=== PATIENT | female | born 1975 | race Caucasian/White ===

== ENCOUNTER 2017-12-27 10:07 | Emergency (ER) | payer BC, SELFPAY ==
[2017-12-27 10:20] VITALS: BP 136/81; PULSE 70; RESP 16; TEMP 36.6; O2SAT 99
--- NOTE | 2017-12-27 10:30 | DI.REPORT_ITS ---
SYMPTOM/DIAGNOSIS: INJURY TO 4TH DIGIT RIGHT FOOT: No fracture or dislocation is seen. There are no significant degenerative changes. A bone island is noted in the distal phalanx of the great toe. IMPRESSION: Negative right foot.
--- NOTE | 2017-12-27 10:33 | ED.GENADUL_ITS ---
Disposition Clinical Impression: Sprain of toe, fourth, right Disposition: HOME Condition: Fair Instructions: Foot Sprain (ED) Additional Instructions: Encourage rest, ice, elevation. Tylenol and/or ibuprofen as needed for discomfort. Please continues postoperative shoe to help with discomfort. Please follow-up with primary care in 1-2 weeks if pain persists. If you develop new or worsening symptoms please seek care urgently once again. Referrals: Destiny Quinones MD [Primary Care Provider] - Medical Decision Making - Medical Decision Making Patient presents today with chief complaint of right foot pain. Struck her foot against a banister last night when she was falling down the stairs. Patient has ecchymosis and swelling to the dorsal aspect of the fourth digit. No palpable deformity or visible deformity. We will obtain radiographic images to evaluate. Patient is status post tubal ligation. Patient has not taken anything as of yet for her discomfort. Will give Tylenol and ibuprofen to help with pain. Discussed this plan with the patient who is in agreement. Discussed images with radiologist. In particular, we discussed small fragment off of the middle phananx of the 4th digit. She advised this does not appear acute. Discussed these findings with the patient. Encourage rest, ice, elevation. Tylenol and/or ibuprofen as needed for discomfort. Given the level of discomfort she is having with ambulation advised postoperative shoe which will help immobilize the foot. We discussed expected healing time. Advise follow- up with primary care in the next 1-2 weeks if pain persists. We discussed new/ worsening symptoms when to seek care urgently once again. All the questions and concerns were addressed and she is in agreement with this plan. History of Present Illness - General Chief complaint: Orthopedic Stated complaint: FOOT INJURY Time Seen by Provider: 12/27/17 10:30 Source: patient, RN notes reviewed Mode of arrival: ambulatory Limitations: no limitations - History of Present Illness Initial comments: Patient is a 42-year-old female presenting today with chief complaint of right foot pain. She reports that last night she stumbled at the top of the steps, and attempt to catch herself struck the fourth toe against a banister. Immediately noted pain and discoloration. As noted the affected toe to be ecchymotic and swollen today. States she has had a stress fracture historically proximal to this reports it is approximately 13 years ago. Denies any fevers or chills. Denies other injury the time the incident. Did not actually end up falling down the steps, reports that she was able to catch herself. Denies any altered sensation in the affected digit. - Related Data Unknown [No Known Home Meds] 12/27/17 Allergies Allergy/AdvReac Type Severity Reaction Status Date / Time No Known Allergies Allergy Unverified 12/27/17 10:23 Review of Systems Constitutional: no symptoms reported Respiratory: no symptoms reported Musculoskeletal: as per HPI Skin: as per HPI Neurological: as per HPI Past Medical History - Past Medical History Medical history: no medical history Surgical history: no surgical history - Social History Living Situation: lives with family General Exam - General Limitations: no limitations General appearance: alert, in no apparent distress - Eye Eye exam: Present: normal apperance - Respiratory Respiratory exam: Absent: respiratory distress - Extremities Exam Extremities exam: Present: full ROM, tenderness, normal capillary refill, joint swelling. Absent: normal inspection (Exam the patient's right lower extremity is significant for ecchymosis along the dorsal aspect of the patient's fourth toe extending proximally into the base of the metatarsal. No deformity palpable. Brisk capillary refill. Sensation is intact. No pain with palpation elsewhere about the foot. Good range of motion of the ankle. No ecchymosis or deformity noted on the plantar side of the foot.) - Neurological Exam Neurological exam: Present: alert, abnormal gait (Antalgic). Absent: motor sensory deficit - Psychiatric Psychiatric exam: Present: normal affect, normal mood - Skin Skin exam: Present: warm, dry, intact. Absent: normal color (Ecchymosis as above) Course Vital Signs - 24 hr 12/27/17 10:20 Temperature 36.6 C Pulse 70 Respiratory 16 Rate Blood Pressure 136/81 Pulse Oximetry 99
[2017-12-27 10:36] VITALS: TEMP 36.6
[2017-12-27] MEDS: Ibuprofen 600 MG TAB PO (10:36)
[2017-12-27] MEDS: Acetaminophen 500 MG TAB 1000 MG PO (10:36)
== END 2017-12-27 11:29 | disposition home or self-care (01) ==
PROVIDERS: Emergency Provider Student in an Organized Health Care Education/Training Program; PCP Family Medicine
DX: S93.504A Unspecified sprain of right lesser toe(s), initial encounter (principal); W22.8XXA Striking against or struck by other objects, initial encounter
CPT/HCPCS: 29515; 99284; 73630; 99282

== ENCOUNTER 2018-02-22 15:40 | Outpatient (REF) | payer BC, SELFPAY | END 2018-02-22 16:00 | LOC: NCHCN 15:40 | PROVIDERS: PCP Family Medicine; Visit Provider Family Medicine | DX: R30.0 Dysuria (principal) | CPT/HCPCS: 87086 ==

== ENCOUNTER 2018-07-06 14:32 | Outpatient (CLI) | payer OTHER, SELFPAY ==
--- NOTE | 2018-07-06 14:20 | DI.RAD_ITS ---
SYMPTOMS/DIAGNOSIS: RIGHT SHOULDER PAIN RIGHT SHOULDER: Three views. No bone or joint abnormality is identified. The soft tissues are unremarkable. IMPRESSION: Negative examination.
== END 2018-07-06 14:52 ==
PROVIDERS: PCP Family Medicine; Visit Provider Physician Assistant
DX: M25.511 Pain in right shoulder (principal)
CPT/HCPCS: 73030

== ENCOUNTER 2018-08-11 00:38 | Outpatient (CLI) | payer OTHER, SELFPAY ==
--- NOTE | 2018-08-11 08:57 | DI.MRI_ITS ---
SYMPTOM/DIAGNOSIS: RT SHOULDER PAIN, TENDINITIS,H/O FALL RIGHT SHOULDER MRI: The study was conducted according to the usual protocol. Axial T 2 fat sat and axial proton density, coronal T 2 fat sat and coronal proton density and sagittal T 2 fat sat and sagittal T 1 pulse sequences were performed. A small bony cyst is noted at the insertion of the supraspinatus tendon on the humerus. The bony signal is otherwise unremarkable. There is no evidence of a tear involving the supraspinatus, infraspinatus, subscapularis or biceps tendons. There is some increased signal and thickening of the subscapularis tendon just proximal to its humeral insertion which could be on the basis of tendinitis. There is no evidence of a labral tear. There is no joint effusion. SUMMARY: Question subscapularis tendinitis. The study is otherwise unremarkable.
== END 2018-08-11 00:58 ==
PROVIDERS: PCP Family Medicine; Visit Provider Student in an Organized Health Care Education/Training Program
DX: M75.81 Other shoulder lesions, right shoulder (principal)
CPT/HCPCS: 73221

== ENCOUNTER 2018-08-18 00:41 | Outpatient (CLI) | payer OTHER, SELFPAY ==
--- NOTE | 2018-08-18 10:20 | DI.RAD_ITS ---
SYMPTOMS/DIAGNOSIS: RT SHOULDER INJECTION, RT ROTATOR CUFF TENDINITIS, M75.81 C-ARM FLUOROSCOPY: Fluoroscopy Time: 18.3 sec C-arm fluoroscopy was utilized by Dr. Escobedo during right shoulder injection. Hardcopy shows needle in place with an intra-articular injection in the glenohumeral joint.
[2018-08-18] MEDS: Bupivacaine 0.5% Pres-Free 10 ML VIAL 5 ML IJ (12:06)
[2018-08-18] MEDS: Omnipaque 300 MG/ML 10 ML BTL IJ (12:06)
[2018-08-18] MEDS: methylPREDNISolone ACETATE 80 MG/ML VIAL IM (12:07)
--- NOTE | 2018-08-18 12:43 | W.PROCNOTE ---
Date of service: 08/18/18 Time of Service: 12:43 Procedure Note Date of procedure: 08/18/18 Procedure: Right Shoulder Injection Surgeon/Proceduralist/Physician: Rogerio Escobedo Procedure Indications: Jessi has had persistent pain of the RIGHT shoulder. Noninvasive measures have been tried. To serve as both diagnostic and therapeutic, an injection under fluoroscopy was recommended. I had discussed the risks of the procedure and the patient elected to proceed. Procedure Description: Jessi was greeted in the flouroscopy room. The correct side was identified and the consent was reviewed with the patient and signed. The patient was then placed in the supine position on the fluoroscopy table. The RIGHT shoulder was then prepped with Chloraprep. The anterior injection starting point was identiifed by bony landmarks and fluoroscopy. The skin and soft tissue in the tract of the injection was anesthetized with 1% Lidocaine. A spinal needle was then inserted deep into the shoulder joint at the level of the recess between the glenoid and superior humeral head. A small amount of Omnipaque solution was injected to confirm intraarticular placement. Once confirmed, the shoulder was injected with 4cc of 0.5% Bupivicaine and 80mg of Depo-Medrol. A bandaid was placed on the injection site. The patient tolerated the procedure well. She noted some minor improvements but still had a bulk of her preinjection pain present.
== END 2018-08-18 01:01 ==
PROVIDERS: PCP Family Medicine; Visit Provider Student in an Organized Health Care Education/Training Program
DX: M25.511 Pain in right shoulder (principal); M75.81 Other shoulder lesions, right shoulder
CPT/HCPCS: 20610; 77002; J1040

== ENCOUNTER 2019-10-08 04:49 | Emergency (ER) | payer BC, SELFPAY ==
--- NOTE | 2019-10-08 04:45 | DI.CT_ITS ---
EXAM: CT ABDOMEN PELVIS W CLINICAL HISTORY: right mid to lower abdominal pain TECHNIQUE: COMPARISON: No exams were available for comparison FINDINGS: CT examination of the pelvis was performed bolus infusion of 94 cc of Omnipaque 350. Images obtained through the lung bases are unremarkable. There are couple of tiny focal areas of decreased attenuat ion liver too small to characterize. Spleen is unremarkable in appearance. Pancreas appears normal. No biliary dilatation. Gallbladder wall thickening noted, nonspecific, inflammatory process not ex cluded, right upper quadrant ultrasound suggested for further evaluation. Abdominal aorta is of diameter and no major vascular abnormality is seen. No significant abdominal w all seen. No significant abdominal or pelvic adenopathy. Appendix is normal. No evidence of divert iculitis or bowel obstruction. Spread Cutter structures appear intact. Adrenals appear normal bilaterally. Left kidney is normal. No left-sided urinary tract calcificatio n or obstruction. There is an obstructing calculus measuring 3-4 millimeters in diameter in the proximal right ureter w ith moderate right hydronephrosis. No additional calcification seen in the right ureter. The urinar y bladder is nearly empty. There is a sclerotic focus the sacrum on the right measuring up to about 15 millimeters in diameter, additionally a sclerotic focus is notedleft pubic bone. These are likely to represent bone islands o r other benign process but metastatic disease is not excluded, correlation with bone scan may be cons idered. IMPRESSION: Obstructing 3-4 millimeter in diameter proximal right ureteral stone. Question gallbladder wall thickening, right upper quadrant ultrasound recommended. Indeterminate sclerotic foci in the pelvis, bone scan suggested to rule out metastatic disease if cli nically appropriate.
[2019-10-08 04:52] VITALS: BP 144/79; PULSE 73; RESP 16; TEMP 36.6; O2SAT 100
--- NOTE | 2019-10-08 04:56 | ED.GENADUL_ITS ---
Discharge Plan Disposition Patient Disposition: HOME Condition: Stable Discharge Details Chief Complaint: Abd Prob Clinical Impression: Abdominal pain, Calculus of right ureter Primary Care Provider: Destiny Quinones V ED Provider: Colin Saleem Home Meds and New Rx's Prescriptions: New ondansetron 4 mg tablet,disintegrating 4 mg PO Q8H PRN (Reason: nausea and vomiting) Qty: 30 RF: 0 tamsulosin [Flomax] 0.4 mg capsule 0.4 mg PO DAILY Qty: 14 RF: 0 oxycodone 5 mg tablet 5 mg PO Q6H PRN (Reason: pain) Qty: 12 RF: 0 Discharge Instructions Instructions: Kidney Stones (ED) Additional Instructions: Your cat scan showed you have a kidney stone. You also have a thick gallbladder wall and had a lesion in the sacrum that your primary careprovider should be made aware of as you may need additional outpatient management take 1000mg tylenol and 600mg ibuprofen every 6 hours for pain as needed if you need additional pain relief take 1 oxycodone. Do not drink alcohol or operate heavy machinery if you take this medicine if you have uncontrolled pain, persistent vomit or fevers return to the emergency department you should be contacted with an appointment with urology Referrals: West Muñiz MD [ [facility] STAFF PHYSICIAN] - Medical Decision Making 44 yo female who denies chronic medical problems doesn't smoke or use drugs, drinks occasionally, comes in with 1-2 days of right mid to lower abdomen pain and initially had n/v now with just intermittent nausea. Denies fevers, chest pain, chest pressure, dyspnea, changes in urinary or bowel patterns She arrives HD stable with tenderness in mid to right middle abdomen without guarding or rebound, no rashes and no distention. Could be colitis vs appendicitis vs kidney stone vs pancreatitis among other pathology, will obtain labs and imaging to further evaluate labs unremarkable, ct confirms kidney stone. Also has gallbladder all thickening and prominent common bile duct. she has no upper abdominal tenderness and negative ayoub's sign, no elevation in lfts and so doubt this as the cause of her symptoms. Also noted indeterminate sclerotic foci in sacrum. I informed her of the gallbladder and sacral findings and to f/u with pcp. Pain is controlled and she is tolerating PO. will d/c and have her f/u with urology with return precautions Differential Diagnosis Differential Diagnosis: kidney stone, pancreatitis, appendicitis Imaging Data Radiologic Study: Attestation: I personally reviewed and interpreted this imaging study as follows: Imaging: CT Scan Radiologist's impression: IMPRESSION: [id number] right hydroureteronephrosis secondary to a proximal/mid right ureteral calculus measuring 4 x 3 mm Question faint noncalcified gallstones versus sludge and mild gallbladder wall thickening. Prominent common bile duct. Further evaluation with right upper quadrant ultrasound as clinically indicated Indeterminate sclerotic foci in the sacrum. Comparison with prior images would be helpful. Osseous metastatic disease cannot be completely excluded Lab Data Lab results reviewed: Yes I reviewed the patient's lab results. HPI General Mode of arrival: ambulatory . Date/Time Provider Initiated Documentation: 10/08/19 04:50 . Limitations to Documentation: no limitations . Information obtained by: patient . History of Present Illness 44 year old F presents to the emergency department with the chief complaint of abdominal pain, described as moderate, Patient reports no radiation. Patient started experiencing this day(s) (2) and it has been constant. No relieving factors improve symptom(s), No exacerbating factors reported . Patient notes nausea/vomiting. Patient did receive the following treatments prior to arrival, none Related Data Home Medications Medication Instructions Recorded Confirmed ondansetron 4 mg PO Q8H PRN #30 tab 10/08/19 oxycodone 5 mg PO Q6H PRN #12 tab 10/08/19 tamsulosin [Flomax] 0.4 mg PO DAILY #14 cap 10/08/19 Previous Rx's Medication Instructions Recorded ondansetron 4 mg PO Q8H PRN #30 tab 10/08/19 oxycodone 5 mg PO Q6H PRN #12 tab 10/08/19 tamsulosin [Flomax] 0.4 mg PO DAILY #14 cap 10/08/19 Allergies Allergy/AdvReac Type Severity Reaction Status Date / Time No Known Allergies Allergy Unverified 10/08/19 04:57 General Stated Complaint: Abd Prob CORETTA: 3 Review of Systems All systems reviewed & are unremarkable except as noted in HPI and below Constitutional Constitutional: Denies chills, Denies fever(s) and Denies weakness Cardiovascular Cardiovascular: Denies chest pain and Denies dyspnea Respiratory Respiratory: Denies cough and Denies dyspnea Gastrointestinal Gastrointestinal: Denies vomiting Musculoskeletal Musculoskeletal: Denies joint swelling Neurologic Neurologic: Denies weakness Psychiatric Psychiatric: Denies depression [facility] Medical History (Updated 10/08/19 @ 06:30 by Colin Saleem MD) Abnormal Pap smear of cervix 2016 ASCUS + HPV. LEEP BELA 1 2016/2017 Nl Pap/Neg HPV. Surgical History (Updated 02/23/18 @ 14:33 by [employer] [place]) section x3. No complications. Ligation of fallopian tube Social History Smoking/Tobacco Use Status: Never Drug use: Never Substance use type: does not use Do you feel safe at home: Yes Do you feel safe in your relationship?: Yes Exam Const General: no acute distress Orientation: alert HENMT Head: normal to inspection Ears: external ears normal General nose exam: external nose normal Mouth: moist mucous membranes Eyes General: appearance normal, both eyes and all related structures Neck Neck: normal visual inspection Resp Effort & Inspection: normal respiratory effort and able to speak in complete sentences Cardio Rate: regular rate GI Palpation: soft and tender Skin General skin exam: no rashes or lesions noted Neuro General: patient alert and patient oriented x3 Extrem General: normal to inspection Psych Mental Status: mental status grossly normal Course Vital Signs Vital signs: Vital Signs Temperature 36.6 C 10/08/19 04:52 Pulse 73 10/08/19 04:52 Respiratory Rate 16 10/08/19 04:52 Blood Pressure 144/79 H 10/08/19 04:52 Pulse Oximetry 100 10/08/19 04:52 Temperature 36.6 C 10/08/19 04:52 Temperature Source Oral 10/08/19 04:52 Pulse 73 10/08/19 04:52 Respiratory Rate 16 10/08/19 04:52 Respiratory Effort 10/08/19 04:55 Blood Pressure 144/79 H 10/08/19 04:52 Blood Pressure Position Sitting 10/08/19 04:52 Pulse Oximetry 100 10/08/19 04:52 Oxygen Delivery Method Room Air 10/08/19 04:52 Oxygen Flow Rate 0 10/08/19 04:52 Pain Level 8 10/08/19 04:52
[2019-10-08 05:08] LABS: Abs Immature Grans 0.01 k/cumm (0.0-0.09); Absolute Basophil Count 0.03 k/cumm (0.0-0.2); Absolute Eosinophil Count 0.07 k/cumm (0.0-0.7); Absolute Lymphocyte Count 1.75 k/cumm (1.2-3.4); Basophils % 0.4; HCT 40.9 % (36.0-46.0); HGB 13.8 g/dL (12.0-15.5); Immature Grans % 0.1 %; Lymphocytes % 24.4; Mean Corp. HGB Concentration 33.7 g/dL (32.0-36.0); Mean Corpuscular Hemoglobin 31.2 pg (27.0-33.0); Mean Corpuscular Volume 92.3 fL (80-95); Mean Platelet Volume 9.7 fL (8.0-11.0); Neutrophils % 67.1; Platelet Count 254 x1000/uL (130-400); RBC 4.43 m/cumm (4.00-5.20); RBC Distribution Width 12.9 % (11.7-14.6); White Blood Cell Count 7.16 k/cumm (4.4-10.8)
[2019-10-08 05:22] LABS: ALT 25 U/L (14-59); AST 21 U/L (15-37); Albumin 3.9 g/dL (3.4-5.0); Alkaline Phosphatase 47 U/L (46-116); Anion Gap 5.9 mmol/L (3-11); BUN 15 mg/dL (7-18); Bilirubin, Direct 0.15 mg/dL (0.00-0.20); Bilirubin, Total 0.5 mg/dL (0.2-1.0); CO2 29.1 mmol/L (21.0-32.0); CREATININE 0.98 mg/dL (0.55-1.02); Chloride 103 mmol/L (98-107); Glucose 132 mg/dL (74-106); Lipase 98 U/L (73-393); Magnesium 1.9 mg/dL (1.8-2.4); Potassium 3.7 mmol/L (3.5-5.1); Sodium 138 mmol/L (136-145)
[2019-10-08] MEDS: Omnipaque 350 MG/ML 100 ML BTL IJ (05:51)
[2019-10-08] MEDS: Normal Saline - Diluent 50 ML VIAL IV (05:52)
[2019-10-08 05:55] LABS: Bilirubin Negative (Negative); Blood Moderate (Negative); Clarity Clear (Clear); Glucose Negative (Negative); Ketones 40 mg/dL (Negative); Leukocyte Esterase Negative (Negative); Nitrite Negative (Negative); Urobilinogen 0.2 EU/dL (Up TO 0.2)
[2019-10-08] MEDS: HYDROmorphone 2 MG/ML VIAL 1 MG IVP (06:03)
[2019-10-08 06:04] LABS: Bacteria Negative HPF (Negative); C & S Indicated? No; Casts Negative LPF (Negative); Crystals Negative HPF (Negative); Epithelial Cells Rare HPF (Negative); Mucus Negative (Negative); Other Cells Negative (Negative); RBC 20-50 HPF (0-2)
--- NOTE | 2019-10-08 06:15 | DI.VRAD_ITS ---
PROCEDURE INFORMATION: Exam: CT Abdomen And Pelvis With Contrast Exam date and time: 10/08/2019 4:57 AM Age: 44 years old Clinical indication: Localized; Patient HX: Right mid to lower abdominal pain; Per PT: Started 24 hours ago TECHNIQUE: Imaging protocol: Computed tomography of the abdomen and pelvis with intravenous contrast. COMPARISON: No relevant prior studies available. FINDINGS: Liver: Faint hypodensity in the dome of the liver is too small to characterize Gallbladder and bile ducts: Question mild gallbladder wall thickening. Faint noncalcified gallstones versus sludge. The common bile duct is mildly prominent. No ductal dilation. Pancreas: Normal. No ductal dilation. Spleen: Normal. No splenomegaly. Adrenals: Normal. No mass. Kidneys and ureters: 3 mm proximal/mid right ureteral calculus with mild to moderate right hydroureteronephrosis right hydroureteronephrosis Stomach and bowel: Unremarkable. No obstruction. No mucosal thickening. Appendix: No evidence of appendicitis. Intraperitoneal space: Unremarkable. No free air. No significant fluid collection. Vasculature: Unremarkable. No abdominal aortic aneurysm. Lymph nodes: Unremarkable. No enlarged lymph nodes. Bladder: Unremarkable as visualized. Reproductive: Unremarkable as visualized. Bones/joints: Sclerotic foci in the sacrum noted . Degenerative changes at the lumbosacral junction and lower lumbar spine No acute fracture. Soft tissues: Unremarkable. IMPRESSION: [id number] right hydroureteronephrosis secondary to a proximal/mid right ureteral calculus measuring 4 x 3 mm Question faint noncalcified gallstones versus sludge and mild gallbladder wall thickening. Prominent common bile duct. Further evaluation with right upper quadrant ultrasound as clinically indicated Indeterminate sclerotic foci in the sacrum. Comparison with prior images would be helpful. Osseous metastatic disease cannot be completely excluded Dictated and Authenticated by: Yash Hartman MD. Ordering:MAUREEN Shaw MD
[2019-10-08] MEDS: Ondansetron 4 MG/2 ML VIAL (06:42)
[2019-10-08 06:57] VITALS: BP 118/74; PULSE 54; RESP 16; O2SAT 99
--- NOTE | 2019-10-09 06:28 | NUR.NOTE ---
referral faxed to urology for f/u care Nursing Note:
== END 2019-10-08 07:02 | disposition home or self-care (01) ==
PROVIDERS: Emergency Provider Emergency Medicine; PCP Family Medicine
DX: N13.2 Hydronephrosis with renal and ureteral calculous obstruction (principal); R93.2 Abnormal findings on diagnostic imaging of liver and biliary tract; R93.7 Abnormal findings on diagnostic imaging of other parts of musculoskeletal system; R11.2 Nausea with vomiting, unspecified
CPT/HCPCS: 36415; 80053; 83690; 96374; 96375; 99285; 74177; 81003; 81015; 82248; 83735; 85025; J2405; J3490

== ENCOUNTER 2019-10-17 16:31 | Outpatient (REF) | payer BC, SELFPAY | END 2019-10-17 16:51 | LOC: NCHCN 16:31 | PROVIDERS: PCP Family Medicine; Visit Provider Nurse Practitioner Family | DX: R30.0 Dysuria (principal) | CPT/HCPCS: 87086 ==

== ENCOUNTER 2019-10-30 00:46 | Outpatient (CLI) | payer BC, SELFPAY ==
--- NOTE | 2019-10-30 | DI.US_ITS ---
EXAM: US ABDOMEN CLINICAL HISTORY: F/U ABNL CT SHOWING GB WALL THICKENING, R93.5 TECHNIQUE: Ultrasound abdomen performed using standard protocol. COMPARISON: CT CT ABDOMEN PELVIS W from 10/08/2019 FINDINGS: ABDOMINAL AORTA AND IVC: Visualized portions normal caliber. PANCREAS: Normal where visualized. LIVER: Normal. Hepatopedal flow in the Portal Vein. GALLBLADDER: Multiple stones are seen in the gallbladder. The largest measures 1.9 cm. There also a ppears to be sludge within the gallbladder. The gallbladder wall is thickened at 5.2 mm. No pericho lecystic fluid identified. BILIARY SYSTEM: Common bile duct measures 3.5 mm. No intrahepatic biliary ductal dilation. HERNANDEZ'S SIGN: Negative. KIDNEYS: Kidneys are symmetric in size. No evidence of renal calculi. No evidence of hydronephrosis. No renal mass or cyst identified. SPLEEN: Not enlarged. ASCITES: None seen. IMPRESSION: Cholelithiasis, gallbladder wall thickening and sludge. Acute cholecystitis may be considered. Plea se correlate clinically. DATA REPOSITORY:
== END 2019-10-30 01:06 ==
PROVIDERS: PCP Family Medicine; Visit Provider Nurse Practitioner Family
DX: K80.20 Calculus of gallbladder without cholecystitis without obstruction (principal); K82.8 Other specified diseases of gallbladder
CPT/HCPCS: 76700

== ENCOUNTER 2019-11-01 01:28 | Outpatient (CLI) | payer BC, SELFPAY ==
--- NOTE | 2019-11-01 11:00 | DI.NM_ITS ---
EXAM: NM BONE SCAN WHOLE BODY GRP CLINICAL HISTORY: F/U ABNL XRAYS,R93.5, SCLEROTIC FOCI SACRUM AND PUBIC BONE ON CT. COMPARISON: CT CT ABDOMEN PELVIS W from 10/08/2019 EXAMINATION: Whole body bone scan was performed with intravenous infusion of 25.0 millicuries of sharad hnetium 99 labeled methylene diphosphonate. FINDINGS: Areas of sclerosis were noted, right sacral ala and left superior pubic ramus, on recent CT. These a reas do not appear to correspond to areas of increased uptake on bone scan. No significant increased uptake seen apart from mildly increased uptake at the L5-S1 level consistent with observed degenerat brayan sclerotic peridiscal changes seen at CT. IMPRESSION: Essentially negative bone scan. No evidence of bony metastatic disease.
== END 2019-11-01 01:48 ==
PROVIDERS: PCP Family Medicine; Visit Provider Nurse Practitioner Family
DX: M53.88 Other specified dorsopathies, sacral and sacrococcygeal region (principal)
CPT/HCPCS: 78306

== ENCOUNTER 2019-11-02 01:56 | Outpatient (CLI) | payer BC, SELFPAY ==
--- NOTE | 2019-11-02 14:00 | DI.US_ITS ---
EXAM: US RENAL CLINICAL HISTORY: monitoring hydro on right N13.30 HYDRONEPHROSIS TECHNIQUE: Ultrasound performed using standard protocol. COMPARISON: No exams were available for comparison FINDINGS: Renal ultrasound was performed according to the usual protocol. Kidneys are normal in size and shape . Cortico medullary definition appears intact. There is no evidence of hydronephrosis, nephrolithia sis, or renal mass. Urinary bladder is unremarkable in appearance with pre and postvoid urinary bladder volume is 162 cc and 8 cc respectively. There are ureteral jets noted bilaterally. IMPRESSION: Negative renal ultrasound. No hydronephrosis at this time. DATA REPOSITORY:
== END 2019-11-02 02:16 ==
PROVIDERS: PCP Family Medicine; Visit Provider Nurse Practitioner Gerontology
DX: N13.30 Unspecified hydronephrosis (principal)
CPT/HCPCS: 76770

== ENCOUNTER 2020-01-08 13:28 | Outpatient (REF) | payer BC, SELFPAY ==
[2020-01-11 13:54] LABS: Method Summary See Comments; Patient Race White; SARS-CoV-2 RNA Undetected (Undetected); SARS-CoV-2 Specimen Source Nasopharynx
== END 2020-01-08 13:48 ==
LOC: NCHCN 13:28
PROVIDERS: PCP Family Medicine; Visit Provider Nurse Practitioner Family
DX: R05 Cough (principal)
CPT/HCPCS: U0003

== ENCOUNTER 2020-06-17 18:09 | Outpatient (REF) | payer BC, SELFPAY ==
[2020-06-17 16:37] LABS: Calculated LDL 83 mg/dL (<100); Cholesterol 184 mg/dL (<200); HDL Cholesterol 93 mg/dL (40-60); Triglyceride 42 mg/dL (<150)
== END 2020-06-17 18:10 | disposition home or self-care (01) ==
LOC: NCHCN 18:09
PROVIDERS: PCP Family Medicine; Visit Provider Nurse Practitioner Family
DX: Z00.00 Encounter for general adult medical examination without abnormal findings (principal); Z13.220 Encounter for screening for lipoid disorders
CPT/HCPCS: 80061

== ENCOUNTER 2021-06-06 18:34 | Emergency (ER) | payer BC, SELFPAY ==
--- NOTE | 2021-06-06 18:30 | DI.RAD_ITS ---
Exam(s) XR ANKLE RT COMPLETE EXAM: XR ANKLE RT COMPLETE CLINICAL HISTORY: pain after twisting. TECHNIQUE: 2D digital imaging was performed. COMPARISON: No exams were available for comparison FINDINGS: BONES: Transverse nondisplaced fracture lateral malleolus. No additional fractures. Talar dome is i ntact. No bony destructive lesion is seen. JOINTS: The ankle mortise is normally aligned. SOFT TISSUE: Swelling around lateral malleolus. Ankle joint effusion. IMPRESSION: Nondisplaced fracture lateral malleolus. DATA REPOSITORY: RADIATION DOSE DELIVERED:
[2021-06-06 18:40] VITALS: BP 160/84; PULSE 73; RESP 18; TEMP 36.5; O2SAT 100
--- NOTE | 2021-06-06 18:56 | ED.GENADUL_ITS ---
Discharge Plan Disposition Patient Disposition: HOME Condition: Improving Discharge Details Clinical Impression: Closed fracture of distal end of right fibula Primary Care Provider: Destiny Quinones V ED Provider: Michael Dawson Home Meds and New Rx's Prescriptions: New miscellaneous medical supply Packet 1 packet miscellaneous ONCE Qty: 1 RF: 0 Continued escitalopram oxalate 10 mg tablet 10 mg PO DAILY RF: 0 Discharge Instructions Instructions: Leg Fracture (ED) Additional Instructions: Elevate above the level of the heart to reduce pain and swelling. You may continue to apply ice through the splint. The splint should remain clean and dry until seen by orthopedics. You should be nonweightbearing until seen by orthopedics with use of crutches or knee scooter. Please call the orthopedic office at [phone] for an appointment time. Tylenol and/or ibuprofen as needed for pain. You received 800 mg of Advil /ibuprofen at approximately 7 PM. Return if you develop cold/blue/tingling of the toes, increasing pain, or any other acute concerns. Medical Decision Making Pleasant and delightful 45-year-old female who was jogging over snow-covered ground when she twisted her ankle. Did not injure herself in any other way. Now has pain with weightbearing and right lateral malleoli tenderness and swelling. Ice applied, oral analgesia administered, patient referred for x-ray. This reveals an acute nondisplaced transverse fracture through the right distal fibula. Patient splinted, will be made while nonweightbearing, will refer her to orthopedics for definitive care. HPI General Mode of arrival: ambulatory . Date/Time Provider Initiated Documentation: 06/06/21 18:44 . Limitations to Documentation: no limitations . Information obtained by: patient . History of Present Illness 45 year old F presents to the emergency department with the chief complaint of Right lateral ankle pain after twisting, described as moderate, Quality is described as dull and constant, and is localized to the right and lower extremity. Patient reports no radiation. Patient started experiencing this minute(s) and it has been constant. No relieving factors improve symptom(s), No exacerbating factors reported . Patient did receive the following treatments prior to arrival, none Related Data Home Medications Medication Instructions Recorded Confirmed escitalopram oxalate 10 mg PO DAILY 06/06/21 06/06/21 miscellaneous medical supply 1 packet MISCELLANEOUS ONCE #1 ea 06/06/21 Previous Rx's Medication Instructions Recorded miscellaneous medical supply 1 packet MISCELLANEOUS ONCE #1 ea 06/06/21 Allergies Allergy/AdvReac Type Severity Reaction Status Date / Time No Known Allergies Allergy Unverified 06/06/21 18:43 General Stated Complaint: Orthopedic CORETTA: 3 Review of Systems Narrative: 6 systems reviewed and otherwise negative no other injury. PFSH All Active Problems (Updated 06/06/21 @ 19:19 by Michael Dawson MD) Closed fracture of distal end of right fibula (Acute) Gallstones (Acute) Right rotator cuff tendonitis (Chronic) ASCUS with positive high risk HPV (Acute 09/10/15) screening Pap. Leep 09/2015 BELA 1. 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 09/2016 Nl pap/Neg HVP 09/2017 Nl Pap/Neg HPV. Dysplasia of cervix (Acute 09/17/15) Medical History (Updated 06/06/21 @ 19:19 by Michael Dawson MD) Abnormal Pap smear of cervix 2015 ASCUS + HPV. LEEP BELA 1 Nl Pap/Neg HPV. Surgical History section x3. No complications. Ligation of fallopian tube Social History Smoking/Tobacco Use Status: Never Smoking risk assessment performed?: Yes Drug use: Never Substance use type: does not use Do you feel safe at home: Yes Do you feel safe in your relationship?: Yes Exam Narrative Exam Narrative: GEN: awake, alert, oriented 3. Pleasant, well groomed, interactive. HEAD: Normocephalic, atraumatic CHEST/RESP: Nontender EXT: Full ROM, right lateral ankle swelling over the lateral malleolus tenderness. Distal motor and sensation within normal limits and 2+ DP. Neuro: Grossly normal neurologic exam, conversant, interactive. Psych: Speech fluent, thoughts congruent, affect normal Course Vital Signs Vital signs: Vital Signs Temperature 36.5 C 06/06/21 18:40 Pulse 73 06/06/21 18:40 Respiratory Rate 18 06/06/21 18:40 Blood Pressure 160/84 H 06/06/21 18:40 Pulse Oximetry 100 06/06/21 18:40 Temperature 36.5 C 06/06/21 18:40 Temperature Source Temporal Artery Scan 06/06/21 18:40 Pulse 73 06/06/21 18:40 Respiratory Rate 18 06/06/21 18:40 Respiratory Effort Non-Labored 06/06/21 18:43 Blood Pressure 160/84 H 06/06/21 18:40 Blood Pressure Position Sitting 06/06/21 18:40 Pulse Oximetry 100 06/06/21 18:40 Oxygen Delivery Method Nasal Cannula 06/06/21 18:40 Pain Level 6 06/06/21 18:43 Procedures Orthopedic Splinting/Casting Injury #1: Side: right Lower Extremity Injury Location: ankle Lower Extremity Immobilizer: posterior splint and stirrup splint Other Orthopedic Equipment: crutches PAWSS Have you Been Recently Intoxicated or Drunk Within the Last 30 days?: No Have you Ever Experienced Previous Episodes of Alcohol Withdrawal?: No Have you ever Experienced Withdrawal Seizures?: No Have you ever Experienced Delirium Tremens(DT)s?: No Have you ever undergone Alcohol Rehabilitation Treatment (i.e, inpt ot outpa tient treatment programs)?: No Have you ever Experienced Blackouts?: No Have you ever Combined Alcohol with other Downers within the last 90 days?: No Have you ever Combined Alcohol with any other Substance of Abuse during the last 90 days?: No Positive Blood Alcohol level on Presentation? [PCS.BAL]: No Evidence of Increased Autonomic Activity (i.e. HR>120, tremor, sweating, agitation, nausea)?: No Result: 0
--- NOTE | 2021-06-06 19:15 | DI.VRAD_ITS ---
PROCEDURE INFORMATION: Exam: XR Right Ankle Exam date and time: 06/06/2021 6:44 PM Age: 45 years old Clinical indication: Pain; Ankle; Right TECHNIQUE: Imaging protocol: XR Right ankle. Views: 3 or more views. COMPARISON: NM BONE SCAN WHOLE BODY GRP 11/01/2019 2:09 PM FINDINGS: Bones/joints: There is an acute nondisplaced transverse fracture through the right lateral malleolus. There appears to be a small ankle effusion. No additional acute fracture or dislocation is seen at the right ankle. Soft tissues: There is soft tissue swelling overlying the right lateral malleolus. IMPRESSION: Acute nondisplaced transverse fracture through the right lateral malleolus. Dictated and Authenticated by: Lino Harding MD. Ordering:DEE Rodriguez MD
[2021-06-06 19:33] VITALS: BP 160/84; PULSE 73; RESP 18; TEMP 36.5; O2SAT 100
[2021-06-06] MEDS: Ibuprofen 800 MG TAB PO (19:33)
== END 2021-06-06 19:45 | disposition home or self-care (01) ==
PROVIDERS: Emergency Provider Emergency Medicine; PCP Family Medicine
DX: S82.491A Other fracture of shaft of right fibula, initial encounter for closed fracture (principal); W00.2XXA Other fall from one level to another due to ice and snow, initial encounter
CPT/HCPCS: 29515; 99283; 73610

== ENCOUNTER 2021-06-23 11:09 | Outpatient (CLI) | payer BC, SELFPAY ==
--- NOTE | 2021-06-23 09:45 | DI.RAD_ITS ---
Exam(s) XR ANKLE RT COMPLETE EXAM: XR ANKLE RT COMPLETE CLINICAL HISTORY: F/U RIGHT DISTAL FIB FRACTURE. TECHNIQUE: 2D digital imaging was performed. COMPARISON: CR,XR XR ANKLE RT COMPLETE from 06/06/2021 FINDINGS: Again noted is the transverse fracture of the lateral malleolus. No other fractures identified and n o widening of the mortise. Fracture line is still evident and there is soft tissue swelling over the lateral aspect of the ankle again noted. No osseous tarsal coalition. IMPRESSION: DATA REPOSITORY: RADIATION DOSE DELIVERED:
== END 2021-06-23 11:10 | disposition home or self-care (01) ==
LOC: DIORS 11:09
PROVIDERS: PCP Family Medicine; Referring Provider Family Medicine; Visit Provider Student in an Organized Health Care Education/Training Program
DX: M79.89 Other specified soft tissue disorders; S82.64XD Nondisplaced fracture of lateral malleolus of right fibula, subsequent encounter for closed fracture with routine healing; W00.2XXD Other fall from one level to another due to ice and snow, subsequent encounter
CPT/HCPCS: 73610

== ENCOUNTER 2021-07-21 10:39 | Outpatient (CLI) | payer BC, SELFPAY ==
--- NOTE | 2021-07-21 10:00 | DI.RAD_ITS ---
Exam(s) XR ANKLE RT COMPLETE EXAM: XR ANKLE RT COMPLETE INDICATION: F/U RIGHT DISTAL FIB FRACTURE. COMPARISON: CR,XR XR ANKLE RT COMPLETE from 06/06/2021 CR XR ANKLE RT COMPLETE from 06/23/2021 three views TECHNIQUE: 2D digital imaging was performed. FINDINGS: There has been no change in the lateral malleolar fracture. Mild interval increase in healing. Decr eased soft tissue swelling. Mild disuse osteopenia. No new abnormalities. DATA REPOSITORY: RADIATION DOSE DELIVERED:
== END 2021-07-21 10:40 | disposition home or self-care (01) ==
LOC: DIORS 10:39
PROVIDERS: PCP Family Medicine; Visit Provider Student in an Organized Health Care Education/Training Program
DX: S82.64XD Nondisplaced fracture of lateral malleolus of right fibula, subsequent encounter for closed fracture with routine healing (principal); W00.2XXD Other fall from one level to another due to ice and snow, subsequent encounter
CPT/HCPCS: 73610

== ENCOUNTER 2021-08-18 10:30 | Outpatient (CLI) | payer BC, SELFPAY ==
--- NOTE | 2021-08-18 10:15 | DI.RAD_ITS ---
Exam(s) XR ANKLE RT COMPLETE EXAM: XR ANKLE RT COMPLETE CLINICAL HISTORY: follow up. TECHNIQUE: 2D digital imaging was performed. Three views. COMPARISON: CR XR ANKLE RT COMPLETE from 07/21/2021 FINDINGS: There has been no change in the alignment of the fracture of the lateral malleolus. No talar dome de fect. Ankle joint space well maintained. IMPRESSION: Stable appearance of distal fibular fracture. DATA REPOSITORY: RADIATION DOSE DELIVERED:
== END 2021-08-18 10:31 | disposition home or self-care (01) ==
LOC: DIORS 10:30
PROVIDERS: PCP Family Medicine; Referring Provider Family Medicine; Visit Provider Physician Assistant Surgical
DX: S82.64XD Nondisplaced fracture of lateral malleolus of right fibula, subsequent encounter for closed fracture with routine healing (principal); W00.2XXD Other fall from one level to another due to ice and snow, subsequent encounter
CPT/HCPCS: 73610

== ENCOUNTER 2021-09-29 08:35 | Outpatient (CLI) | payer BC, SELFPAY ==
--- NOTE | 2021-09-29 08:15 | DI.RAD_ITS ---
Exam(s) XR ANKLE RT COMPLETE EXAM: XR ANKLE RT COMPLETE INDICATION: f/u R DISTAL FIB FRACTURE. COMPARISON: CR XR ANKLE RT COMPLETE from 08/18/2021 TECHNIQUE: 2D digital imaging was performed. Three views. FINDINGS: There has been no change in the alignment of the distal fibular fracture. Further healing is noted. Ankle mortise is not widened. DATA REPOSITORY: RADIATION DOSE DELIVERED:
== END 2021-09-29 08:36 | disposition home or self-care (01) ==
LOC: DIORS 08:36
PROVIDERS: PCP Family Medicine; Referring Provider Family Medicine; Visit Provider Student in an Organized Health Care Education/Training Program
DX: S82.491D Other fracture of shaft of right fibula, subsequent encounter for closed fracture with routine healing (principal); X58.XXXD Exposure to other specified factors, subsequent encounter
CPT/HCPCS: 73610

== ENCOUNTER 2022-03-18 19:09 | Outpatient (REF) | payer BC, SELFPAY ==
[2022-03-18 20:42] LABS: Abs Immature Grans 0.01 10^3/uL (0.0-0.06); Absolute Basophil Count 0.07 10^3/uL (0.0-0.2); Absolute Eosinophil Count 0.14 10^3/uL (0.0-0.7); Absolute Lymphocyte Count 1.81 10^3/uL (1.2-3.4); Absolute Monocyte Count 0.43 10^3/uL (0.1-0.8); Absolute Neutrophil Count 2.84 10^3/uL (1.2-6.7); Basophils % 1.3; Eosinophils % 2.6; HCT 39.8 % (36.0-46.0); HGB 13.1 g/dL (11.2-15.7); Immature Grans % 0.2; Lymphocytes % 34.2; MCH 31.5 pg (27.0-33.0); MCHC 32.9 % (32.0-36.0); MCV 96 fL (80-95); MPV 10.4 fL (8.0-11.0); Monocytes % 8.1; Neutrophils % 53.6; Platelet Count 270 10^3/uL (130-400); RBC 4.16 10^6/uL (3.93-5.22); RDW 12.6 % (11.7-14.6); RDW-SD 45.1 fL
[2022-03-18 20:56] LABS: Iron 78 ug/dL (50-170); Total Iron Binding Capacity 353 ug/dL (250-450)
[2022-03-18 21:19] LABS: ALT 19 U/L (14-59); AST 22 U/L (15-37); Albumin 3.9 g/dL (3.4-5.0); Alkaline Phosphatase 69 U/L (46-116); Anion Gap 6.9 mmol/L (3-11); BUN 14 mg/dL (7-18); Bilirubin, Total 0.5 mg/dL (0.2-1.0); CO2 29.1 mmol/L (21.0-32.0); CREATININE 0.8 mg/dL (0.55-1.02); Calcium 9.4 mg/dL (8.5-10.1); Chloride 101 mmol/L (98-107); Estimated GFR 90.83 (mL/min/1.73m2); Ferritin 43 ng/mL (8-252); Folate 10.3 ng/mL (8.6-20.0); Glucose 112 mg/dL (74-106); Potassium 3.5 mmol/L (3.5-5.1); Sodium 137 mmol/L (136-145); TSH 2.63 uIU/mL (0.36-3.74); Total Protein 7.4 g/dL (6.4-8.2); Vitamin B12 778 pg/mL (193-986)
[2022-03-18 21:24] LABS: Vitamin D 25 Total 62.3 ng/mL (30-100)
[2022-03-18 21:59] LABS: FREE T4 0.89 ng/dL (0.76-1.46); GGT 23 U/L (5-55)
[2022-03-19 18:11] LABS: CRP, High Sensitivity 0.98 mg/L (See Note)
[2022-03-19 18:41] LABS: T3, Total 98 ng/dL (97-169)
== END 2022-03-18 19:10 | disposition home or self-care (01) ==
LOC: NCHCN 19:09
PROVIDERS: PCP Family Medicine; Visit Provider Nurse Practitioner Family
DX: Z13.89 Encounter for screening for other disorder (principal)
CPT/HCPCS: 80053; 82306; 86141; 82607; 82728; 82746; 82977; 83540; 83550; 84439; 84443; 84480; 85025

== ENCOUNTER 2022-05-26 02:11 | Outpatient (CLI) | payer BC, SELFPAY ==
--- NOTE | 2022-05-26 | DI.US_ITS ---
Exam(s) US SOFT TISSUE EXTREMITY EXAM: US SOFT TISSUE EXTREMITY CLINICAL HISTORY: RT KNEE PAIN, M25.561, EVAL FOR BAKERS CYST, DIFFICULTY STRAIGHTENING. TECHNIQUE: Ultrasound was performed using standard protocol. COMPARISON: None. FINDINGS: Images are submitted for interpretation from area of apparent clinical concern in the popliteal fossa of the right knee. There is a fluid collection in the popliteal fossa measuring 3.3 x 2.6 x 1.2 cm. This probably a Yinka er's cyst. Does not contain loose bodies. IMPRESSION: Reddy cyst with measurements as above. DATA REPOSITORY:
--- NOTE | 2022-05-26 | DI.RAD_ITS ---
Exam(s) XR KNEE RT 3V AP,LAT,CHANELLE EXAM: XR KNEE RT 3V AP,LAT,CHANELLE CLINICAL HISTORY: RT KNEE PAIN, M25.561, DIFFICULTY STRAIGHTENING, CATCHING X 3 DAYS. TECHNIQUE: 2D digital imaging was performed. COMPARISON: No exams were available for comparison FINDINGS: 3 views No evidence of fracture. There appears to be a small amount of increased joint fluid. There are no osteochondral defects. No disc space narrowing. Bone density normal. No osseous lesions. No obvio us degenerative changes. IMPRESSION: No significant osseous findings but there does appear to be a small joint effusion. This may signify a possible internal derangement. DATA REPOSITORY: RADIATION DOSE DELIVERED:
== END 2022-05-26 02:31 ==
LOC: DI 02:11
PROVIDERS: PCP Family Medicine; Visit Provider Nurse Practitioner Family
DX: M25.561 Pain in right knee (principal)
CPT/HCPCS: 73562; 76881

== ENCOUNTER 2022-07-20 01:54 | Outpatient (CLI) | payer BC, SELFPAY ==
--- NOTE | 2022-07-20 06:45 | DI.MRI_ITS ---
Exam(s) MR LOWER JOINT RT WO EXAM: MR LOWER JOINT RT WO CLINICAL HISTORY: ? med meniscal tear,RT KNEE PAIN, INTERNAL DERANGEMENT, M23.91. TECHNIQUE: Multiplanar multisequence MRI was performed. COMPARISON: CR XR KNEE RT 3V AP,LAT,CHANELLE from 05/26/2022 FINDINGS: BONES: There is no fracture or contusion pattern. JOINTS: There is mild thinning of the articular cartilage in the medial femoral tibial joint space. There taken a cartilage is otherwise well maintained. There is a small amount of fluid in the joint space. TENDONS: Extensor mechanism: Unremarkable. Medial retinaculum: Unremarkable. Lateral retinaculum: Unremarkable. Popliteus: Unremarkable. MUSCLES: Unremarkable. MENISCI: Degenerative signal seen in the body of the medial meniscus. There is no evidence of a tear . The lateral meniscus is unremarkable. SOFT TISSUES: There is mild edema seen in the prepatellar soft tissues. LIGAMENTS: Anterior Cruciate: Unremarkable. Posterior Cruciate: Unremarkable. Medial Collateral:Unremarkable. Lateral Collateral: Unremarkable. OTHER: There is a 3 x 1.3 x 4.1 cm popliteal cyst. IMPRESSION: 1. Degeneration of the medial meniscus. No evidence of a meniscal tear. 2. No evidence of a ligament tear. 3. Mild cartilage thinning in the medial femoral tibial joint space. 4. 3 x 1.3 x 4.1 cm Reddy's cyst. DATA REPOSITORY:
== END 2022-07-20 02:14 ==
LOC: DI 01:55
PROVIDERS: PCP Family Medicine; Visit Provider Student in an Organized Health Care Education/Training Program
DX: M23.8X1 Other internal derangements of right knee; M25.561 Pain in right knee; M25.461 Effusion, right knee; M71.21 Synovial cyst of popliteal space [Baker], right knee
CPT/HCPCS: 73721

== ENCOUNTER → 2022-12-23 01:20 | Outpatient (CLI) | payer BC, SELFPAY ==
--- NOTE | 2022-12-23 12:00 | DI.MAMMO_ITS ---
Exam(s) MAMMO SCREENING EXAM: MAMMO SCREENING CLINICAL HISTORY: SCREENING, Z12.31, HEALTH SCREENING, Z13.9 TECHNIQUE: Mammograms were interpreted according to the usual protocol including computer analysis w streamit CAD system, tomosynthesis and C-view imaging. COMPARISON: 2014, 2016 FINDINGS: The breasts are composed of heterogeneously dense fibroglandular densities, Breast Density category C . No suspicious masses or suspicious microcalcifications are seen. No skin thickening or abnormal axillary lymph nodes are seen. There has been no significant change from prior exams. IMPRESSION: BI-RADS Category 1, Negative mammogram. Yearly screening mammography is recommended. Breast Density Category C, heterogeneously Dense. The mammogram demonstrates the patient's breast tissue is dense. Dense breast tissue is very common a nd is not abnormal but dense breast tissue can make it harder to find cancer on a mammogram. Also, de nse breast tissue may increase breast cancer risk. This information about the result of the mammogram report was provided to the patient to raise their awareness. Use this report when you speak with the patient about their risks for breast cancer, which includes their family history. At that time, you may recommend additional screening tests (Ultrasound or MRI) as they might be useful based on their r isk. A negative radiographic report should not delay biopsy if a dominant or clinically suspicious mass is present. Up to ten percent of cancers are not identified on mammography. A negative report may reinforce clinical impression. Adenosis and dense breasts may obscure an underlying neoplasm. False positive reports average 6 to 10%.
== END ==
PROVIDERS: PCP Family Medicine; Visit Provider Nurse Practitioner Family
DX: Z12.31 Encounter for screening mammogram for malignant neoplasm of breast (principal)
CPT/HCPCS: 77063; 77067

== ENCOUNTER 2022-12-29 15:57 | Outpatient (REF) | payer BC, SELFPAY ==
--- NOTE | 2022-12-29 15:45 | PAPFT_PTH ---
PATIENT: Jessi Fu LOC: [facility] U#:[id number] AGE/SX: 47/F ROOM: RE12/29/[address]: Yolanda Saleem NP : 1975 BED: DIS: 12/29/2022 SPEC #: [id number] RECD: 12/29/22 18:23 STATUS: ALONDRAMary RECarlos #: [id number] HALLIE: 12/29/22 15:[address]: Yolanda Saleem NP DEPT: [facility] Cytology RECD BY: Yenny Gomez ENTERED: 12/29/22 18:24 SP TYPE: PAPFT OTHR DR: Destiny Quinones V Tissues: 1 - CX/ENDOCX FOR PAP SMEARS Procedures: PAP THIN PREP/UVM Screening HPV DNA PROBE Comments: [id number]
== END 2022-12-29 15:58 | disposition home or self-care (01) ==
LOC: LBN 15:57
PROVIDERS: PCP Family Medicine; Visit Provider Nurse Practitioner Women's Health
DX: Z12.4 Encounter for screening for malignant neoplasm of cervix (principal); R87.618 Other abnormal cytological findings on specimens from cervix uteri; Z11.51 Encounter for screening for human papillomavirus (HPV); Z87.410 Personal history of cervical dysplasia
CPT/HCPCS: 88142; 87624

== ENCOUNTER 2023-05-17 12:11 | Emergency (ER) | payer BC, SELFPAY ==
[2023-05-17 12:43] VITALS: BP 134/94; PULSE 66; RESP 18; TEMP 37.2; O2SAT 99
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
== END 2023-05-17 14:40 | disposition home or self-care (01) ==
PROVIDERS: Emergency Provider Emergency Medicine; PCP Family Medicine
DX: M79.641 Pain in right hand (principal)
CPT/HCPCS: 99283; 73130

== ENCOUNTER 2024-08-14 11:46 | Emergency (ER) | payer BC, SELFPAY ==
[2024-08-14 11:50] VITALS: BP 147/98; PULSE 73; RESP 16; TEMP 36.6; O2SAT 98
--- NOTE | 2024-08-14 12:00 | DI.RAD_ITS ---
Exam(s) XR FOOT LT COMPLETE EXAM: XR FOOT LT COMPLETE CLINICAL HISTORY: Left foot pain. TECHNIQUE: 2D digital imaging was performed. Three views. COMPARISON: No exams were available for comparison FINDINGS: BONES: No acute fracture is present. No bony destructive lesion is seen. Accessory navicular. JOINTS: No dislocation present. SOFT TISSUE: Normal. IMPRESSION: Unremarkable radiographs of the left foot. DATA REPOSITORY: RADIATION DOSE DELIVERED:
--- NOTE | 2024-08-14 12:00 | ED.GENADUL_ITS ---
Discharge Plan Disposition Patient Disposition: Home Discharge Details Clinical Impression: Acute pain of left foot Primary Care Provider: Destiny Quinones V ED Provider: Jack Rogers Home Meds and New Rx's Prescriptions: Continued escitalopram oxalate 10 mg tablet 10 mg PO DAILY Patient Comments: TAKE ONE TABLET BY MOUTH EVERY DAY Discharge Instructions Additional Instructions: You are seen in the emergency department for your foot pain. Your x-ray showed no sign of any fractures. Please follow-up with your primary care provider as needed and please go to your podiatry appointment later this month. As we discussed if your foot becomes more swollen if you cannot bear weight on your foot please return to the emergency department. Please wear this boot and or hard soled shoes to rest your foot. For your pain please take medications as follows: 1. Take acetaminophen (Tylenol), 1,000 mg (two 500 mg tabs) every 6 hours [2. Take ibuprofen (Advil), 400 mg every 6 hours.] Discharge Data Discharge Date/Time-TO BE ENTERED AT DEPARTURE: 08/14/24 13:22 HPI General Date/Time Provider Initiated Documentation: 08/14/24 12:00 . HPI Narrative: MDM This is an overall very well-appearing normothermic and not tachycardic 49-year-old female with left foot pain but x-rays reassuring against any acute osseous abnormalities for which patient will receive a walking boot and be made weightbearing as tolerated with outpatient podiatry follow-up. Low risk for septic joint given no history of IV drug use. No pain out of proportion to suggest necrotizing soft tissue infection. No midfoot instability to suggest Lisfranc injury. No lateral foot tenderness to suggest Adame fracture. No erythema to suggest cellulitis. No calf pain to suggest DVT. No fluctuance to suggest abscess. Left foot warm and well-perfused so I am not concern for critical limb ischemia so I do not feel the patient requires CT angiogram of her abdomen with bilateral runoff. Patient has no history of gout and based on her proximal foot pain my suspicion for gouty arthritis is low so I feel that the risks of steroids outweigh the benefits. Patient has had no significant trauma to her left foot and as a result I do not feel she requires a CT scan to increase sensitivity for fracture. Patient does have outpatient podiatry follow-up in 21 days. We discussed that she should wear this walking boot and we also discussed hard soled shoe. She will be weightbearing as tolerated on her left lower extremity. Advised acetaminophen ibuprofen as needed for pain. We discussed that if her pain worsened or if she developed any swelling or erythema that she should return to the emergency department. She was discharged with an empiric trial of expectant outpatient management. HPI This is a previously healthy 49-year-old female right emergency department via private vehicle in setting of left foot pain. Patient reports that she has decreased her activity recently. She noted that her pain began approximately 1 year ago after an episode of running. She denies any specific recent trauma to her foot. She denies IV drug use. She has no history of gout and denies any fevers. She denies any specific injury to her foot. She has never had any surgeries to her left foot. She denies any nausea shortness of breath and calf pain. Exam General: Well-appearing in no acute distress speaking in complete sentences. Head: Normocephalic, atraumatic. Eye: extraocular eye movements intact. No conjunctival injection. No scleral icterus. Ear, nose, mouth, throat: Grossly normal inspection. Normal voice, handling secretions normally. Neck: Trachea midline. Cardiovascular: Well-perfused distal extremities. Respiratory: Nonlabored respiration. Gastrointestinal: Nondistended abdomen. Musculoskeletal: Left foot with mild tenderness throughout the midfoot. Mild swelling. No warmth. No erythema. Left foot warm well-perfused with 2+ PT and DP pulses. Cap refill less than 2 seconds in the left toes. 4-5 strength dorsi and plantarflexion limited secondarily by pain. No erythema. No fluctuance. Skin: Normal for age and race, grossly normal temperature and turgor. No acute rash. Neurologic: Alert and appropriate, no apparent acute deficits. Psychiatric: Mood and manner are appropriate. Grooming and personal hygiene are appropriate. Related Data Home Medications ?Medication ?Instructions ?Recorded ?Confirmed escitalopram oxalate 10 mg tablet 10 mg PO DAILY 05/17/23 08/14/24 Allergies Allergy/AdvReac Type Severity Reaction Status Date / Time No Known Allergies Allergy Unverified 08/14/24 11:55 General Stated Complaint: Orthopedic CORETTA: 4 Course Vital Signs Vital signs: Vital Signs Temperature 36.6 C 08/14/24 11:50 Pulse 73 08/14/24 11:50 Respiratory Rate 16 08/14/24 11:50 Blood Pressure 147/98 H 08/14/24 11:50 Pulse Oximetry 98 08/14/24 11:50 Temperature 36.6 C 08/14/24 11:50 Temperature Source Oral 08/14/24 11:50 Pulse 73 08/14/24 11:50 Respiratory Rate 16 08/14/24 11:50 Blood Pressure 147/98 H 08/14/24 11:50 Blood Pressure Position Sitting 08/14/24 11:50 Pulse Oximetry 98 08/14/24 11:50 Pain Level 8 08/14/24 11:50 Medical Decision Making Quality:SDOH Health Related Social Needs: No Data to Display PFSH All Active Problems (Updated 08/14/24 @ 13:05 by Jack Rogers MD) Acute pain of left foot (Acute) 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 Leep 09/2015 BELA 1. no further dysplasia Mild dysplasia of cervix (BELA I) (10/10/15) on LEEP specimen. 09/2016 Nl pap/Neg HVP 09/2017 Nl Pap/Neg HPV. Surgical History section x3. No complications. 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 Do you feel safe at home: Yes Do you feel safe in your relationship?: Yes Female Reproductive History Menstrual control method: permanent sterilization PAWSS Have you Been Recently Intoxicated or Drunk Within the Last 30 days?: No Have you Ever Experienced Previous Episodes of Alcohol Withdrawal?: No Have you ever Experienced Withdrawal Seizures?: No Have you ever Experienced Delirium Tremens(DT)s?: No Have you ever undergone Alcohol Rehabilitation Treatment (i.e, inpt ot outpatient treatment programs)?: No Have you ever Experienced Blackouts?: No Have you ever Combined Alcohol with other Downers within the last 90 days?: No Have you ever Combined Alcohol with any other Substance of Abuse during the last 90 days?: No Positive Blood Alcohol level on Presentation? [PCS.BAL]: No Evidence of Increased Autonomic Activity (i.e. HR>120, tremor, sweating, agitation, nausea)?: No Result: 0
[2024-08-14 13:22] VITALS: BP 140/75; PULSE 78; RESP 18; O2SAT 98
== END 2024-08-14 13:22 | disposition home or self-care (01) ==
PROVIDERS: Emergency Provider Emergency Medicine; PCP Family Medicine
DX: M79.672 Pain in left foot (principal); X58.XXXA Exposure to other specified factors, initial encounter
CPT/HCPCS: 29515; 99283; 73630

== ENCOUNTER 2024-09-04 00:18 | Outpatient (CLI) | payer BC, SELFPAY ==
--- NOTE | 2024-09-04 07:45 | DI.RAD_ITS ---
Exam(s) XR ANKLE LT COMPLETE EXAM: XR ANKLE LT COMPLETE CLINICAL HISTORY: Left ankle pain,m25.572 TECHNIQUE: 2D digital imaging was performed. Three views. COMPARISON: CR XR ANKLE RT COMPLETE from 09/29/2021 CR XR FOOT LT COMPLETE from 08/14/2024 FINDINGS: BONES: Subacute or old fracture at the distal fibula. No acute fracture is present. No bony destruct brayan lesion is seen. JOINTS:The ankle mortise is normally aligned. The joint space is maintained. SOFT TISSUE: Normal. IMPRESSION: Acute to old fracture of the distal fibula. DATA REPOSITORY: RADIATION DOSE DELIVERED:
--- NOTE | 2024-09-04 07:45 | DI.RAD_ITS ---
Exam(s) XR FOOT LT COMPLETE EXAM: XR FOOT LT COMPLETE CLINICAL HISTORY: Left foot pain,m79.672. TECHNIQUE: 2D digital imaging was performed. Three views. COMPARISON: CR XR FOOT LT COMPLETE from 08/14/2024 FINDINGS: BONES: No acute fracture is present. No bony destructive lesion is seen. JOINTS: No dislocation present. Accessory navicular. No significant degenerative changes. Plantar a rch is maintained. SOFT TISSUE: Normal. IMPRESSION: Accessory navicular DATA REPOSITORY: RADIATION DOSE DELIVERED:
== END 2024-09-04 00:38 ==
LOC: DI 00:18
PROVIDERS: PCP Family Medicine; Visit Provider Podiatrist
DX: M79.672 Pain in left foot (principal); M25.572 Pain in left ankle and joints of left foot; Q74.2 Other congenital malformations of lower limb(s), including pelvic girdle
CPT/HCPCS: 73610; 73630

== ENCOUNTER 2024-09-28 02:31 | Outpatient (CLI) | payer BC, SELFPAY ==
--- NOTE | 2024-09-28 06:45 | DI.RAD_ITS ---
Exam(s) XR FOOT LT COMPLETE EXAM: XR FOOT LT COMPLETE CLINICAL HISTORY: pain,accessory navicular bone lt foot, Q74.2. TECHNIQUE: 2D digital imaging was performed. Three views. COMPARISON: CR XR FOOT LT COMPLETE from 09/04/2024 FINDINGS: BONES: No acute fracture is present. No bony destructive lesion is seen. Prominent accessory navicu lar with some spurring at the articulation. JOINTS: No dislocation present. The plantar arch is maintained. SOFT TISSUE: Normal. IMPRESSION: Prominent accessory navicular with degenerative changes at the articulation with the main navicular b one. DATA REPOSITORY: RADIATION DOSE DELIVERED:
== END 2024-09-28 02:51 ==
LOC: DI 02:31
PROVIDERS: PCP Family Medicine; Visit Provider Podiatrist
DX: Q74.2 Other congenital malformations of lower limb(s), including pelvic girdle (principal)
CPT/HCPCS: 73630

== ENCOUNTER 2024-11-09 01:58 | Outpatient (CLI) | payer BC, SELFPAY ==
--- NOTE | 2024-11-09 | DI.DEXA_ITS ---
Exam(s) XR DEXA BONE DENSITY W/WO PAMELA EXAM: XR DEXA BONE DENSITY W/WO PAMELA CLINICAL HISTORY: ASYMPTOMATIC MENOPAUSAL STATE, Z78.0 TECHNIQUE: [employer] densitometer analysis of left hip, lumbar spine and left forearm. Lateral survey image of the thoracic and lumbar spine. COMPARISON: No exams were available for comparison FINDINGS: Lateral view of the thoracic and lumbar spine shows no evidence of compression fractures. Bone mineral density measurements of the lumbar spine correspond to a total T- score of -1.2, in the osteopenic range. Bone mineral density measurements of the left hip correspond to a total T-score of 0.2. The femoral neck T-score is -0.1, in the normal range. Theleft forearm bone mineral density measurements correspond to a T-score of the distal 3rd of 0, in the normal range.. IMPRESSION: Normal bone mineral density of the hip and forearm. Mild osteopenia of the spine.
== END 2024-11-09 02:18 ==
LOC: DI 01:59
PROVIDERS: PCP Family Medicine; Visit Provider Nurse Practitioner Family
DX: M81.0 Age-related osteoporosis without current pathological fracture (principal); Z78.0 Asymptomatic menopausal state
CPT/HCPCS: 77080

== ENCOUNTER 2025-01-30 00:52 | Outpatient (CLI) | payer BC, SELFPAY ==
--- NOTE | 2025-01-30 11:30 | DI.MAMMO_ITS ---
Exam(s) MAMMO SCREENING EXAM: MAMMO SCREENING CLINICAL HISTORY: screening TECHNIQUE: Mammograms were interpreted according to the usual protocol including computer analysis with CAD system, tomosynthesis and C-view imaging. COMPARISON: 2014 through 2022 FINDINGS: The breasts are composed of heterogeneously dense fibroglandular densities, Breast Density category C. No suspicious masses or suspicious microcalcifications are seen. No skin thickening or abnormal axillary lymph nodes are seen. There has been no significant change from prior exams. IMPRESSION: BI-RADS Category 1, Negative mammogram. Yearly screening mammography is recommended. Breast Density: Category C - The breasts are heterogeneously dense, which may obscure small masses. Breast density Category C or D implies that the patient has dense breast tissue. Dense breast tissue can make it harder to find cancer on a mammogram. Dense breast tissue is also associated with an increased risk of breast cancer. This information about the result of the mammogram report was provided to the patient to raise their awareness. Use this report when you speak with the patient about their risks for breast cancer, which includes their family history. At that time, you may recommend additional screening tests (Ultrasound or MRI) as these tests may add significant information. A negative radiographic report should not delay biopsy if a dominant or clinically suspicious mass is present. Up to ten percent of cancers are not identified on mammography. A negative report may reinforce clinical impression. Adenosis and dense breasts may obscure an underlying neoplasm. False positive reports average 6 to 10%.
== END 2025-01-30 01:12 ==
LOC: DI 00:52
PROVIDERS: PCP Family Medicine; Visit Provider Nurse Practitioner Women's Health
DX: Z12.31 Encounter for screening mammogram for malignant neoplasm of breast (principal)
CPT/HCPCS: 77063; 77067